=== PATIENT | male | born 1965 | race Caucasian/White ===

== ENCOUNTER 2019-09-24 19:29 | Emergency (ER) | payer BC ==
[~2019-09-24] VITALS: Ht 190.5 cm; Wt 90.7 kg
[2019-09-24] MEDS ORDERED: KETOROLAC TROMETHAMINE INJ 60 MG/2 ML VIAL IM ONE (20:00)
[2019-09-24] MEDS ORDERED: CYCLOBENZAPRINE 10 MG TABLET PO ONE (20:00)
[2019-09-24] MEDS ORDERED: LIDOCAINE 5% (PATCH) 1 EA PATCH TP SCH (20:00)
--- NOTE | 2019-09-24 20:02 | NUR ---
PATIENT CAME TO ER C/O LOWER BACK PAIN THAT HAS BEEN WORSENING SINCE YESTERDAY. PATIENT STATES, "MY BACK SEIZES UP". PATIENT STATES THAT HE IS MORE COMFORTABLE WHE HE LAYING IN A SUPINE POSITION. PATIENT IS AAOX4. NO SOB. BREATHING EVENLY AND UNLABORED ON ROOM AIR. CONNECTED TO MONITOR.
[2019-09-24] MEDS ORDERED: KETOROLAC TROMETHAMINE INJ 30 MG/ML VIAL ONE (20:16)
[2019-09-24] MEDS ORDERED: CYCLOBENZAPRINE 10 MG TABLET ONE (20:16)
[2019-09-24] MEDS ORDERED: HYDROCODONE/APAP 10/325MG 1 EA TABLET PO ONE (21:00)
[2019-09-24] MEDS ORDERED: HYDROCODONE/APAP 10/325MG 1 EA TABLET ONE (21:31)
[2019-09-24] MEDS ORDERED: diphenhydrAMINE HCL 50 MG/ML VIAL ONE (21:37)
--- NOTE | 2019-09-24 22:27 | NUR ---
PATIENT IS AMBULATORY WITH A STEADY GAIT TO THE RESTROOM. PATIENT'S CHILDREN ARE HERE TO DRIVE PATIENT HOME.
[2019-09-24 22:29] VITALS: BP 139/87
--- NOTE | 2019-09-24 22:29 | NUR ---
Patient discharged to home in stable condition. Written and verbal after care instructions given. Patient verbalizes understanding of instruction.
== END 2019-09-24 22:31 | disposition home or self-care (01) ==
LOC: ER 19:33
DX: S39.012A Strain of muscle, fascia and tendon of lower back, initial encounter (principal); M10.9 Gout, unspecified; X50.0XXA Overexertion from strenuous movement or load, initial encounter; Y93.89 Activity, other specified; Y92.89 Other specified places as the place of occurrence of the external cause; Y99.8 Other external cause status
CPT/HCPCS: 96372; 99283; J1200; J1885

== ENCOUNTER 2019-10-22 12:07 | Emergency (ER) | payer BC ==
[~2019-10-22] VITALS: Ht 182.9 cm; Wt 90.7 kg
[2019-10-22] MEDS ORDERED: FAMOTIDINE (20 MG) 20 MG TABLET ONE (12:27)
[2019-10-22] MEDS ORDERED: predniSONE 20 MG TABLET ONE (12:27)
[2019-10-22] MEDS ORDERED: predniSONE 20 MG TABLET PO ONE (12:30)
[2019-10-22] MEDS ORDERED: FAMOTIDINE (20 MG) 20 MG TABLET PO ONE (12:30)
[2019-10-22 12:46] VITALS: BP 157/91
== END 2019-10-22 12:47 | disposition home or self-care (01) ==
LOC: ER 12:08
DX: L50.8 Other urticaria (principal)
CPT/HCPCS: 99283; J7512; J7030